=== PATIENT | male | born 1940 | race Caucasian/White ===

== ENCOUNTER 2016-07-22 02:00 | Emergency (ER) | payer MEDICARE ==
[2016-07-22] MEDS ORDERED: CLINDAMYCIN 600MG/50ML PREMIX 600 MG in DEXTROSE 1 BAG IV ONE (02:37)
--- NOTE | 2016-07-22 02:42 | Emergency Department Record ---
History of Present Illness - General Chief complaint: Lower Extremity Pain Stated complaint: LEFT LEG INJURY Time Seen by Provider: 07/22/16 02:36 Source: Patient Mode of Arrival: Ambulatory Limitations: No limitations - History of Present Illness Initial comments: 76 yo male presents to ED with a CC of left lower extremity pain and redness for the past several days. Patient states that he injured the lower extremity on a ladder earlier in the week, and the wound has been healing. Patient noticed the area around the wound became more "purple" in coloration, and came to have the lower extremity examined. Patient denies fever or chills, but reports history of CAD and DM. MD Complaint: Extremity pain Onset/Timin -: Days(s) Location: Left History of Same: No Radiation: None Severity scale (1-10): 7 Quality: Aching Consistency: Intermittent Improves with: Movement Worsens with: Rest Associated Symptoms: Denies other symptoms - Related Data Previous Rx's Medication Instructions Recorded Clindamycin HCl [Cleocin HCl] 300 mg PO Q6H #39 capsule 07/22/16 Allergies Allergy/AdvReac Type Severity Reaction Status Date / Time No Known Drug Allergies Allergy Verified 07/22/16 02:16 Travel Screening - Travel/Exposure Within Last 30 Days Have you traveled within the last 30 days?: No - Travel/Exposure Within Last Year Have you traveled outside the [place] in the last year?: No - Additonal Travel Details Have you been exposed to anyone with a communicable illness?: No - Travel Symptoms Symptom Screening: None Review of Systems Constitutional: Denies: Chills, Fever, Malaise, Night sweats Eyes: Denies: Eye discharge, Eye pain ENT: Denies: Congestion, Ear pain, Epistaxis Respiratory: Denies: Cough, Dyspnea Cardiovascular: Denies: Chest pain, Dyspnea on exertion Endocrine: Denies: Fatigue, Heat or cold intolerance Gastrointestinal: Denies: Abdominal pain, Nausea, Vomiting Genitourinary: Denies: Incontinence, Retention Musculoskeletal: Reports: Myalgia. Denies: Arthralgia, Back pain, Gout, Joint swelling Skin: Reports: Change in color. Denies: Bruising, Change in hair/nails Neurological: Denies: Abnormal gait, Confusion, Headache, Seizure Psychiatric: Denies: Anxiety Hematological/Lymphatic: Denies: Anemia, Blood Clots Past Medical History - SOCIAL HISTORY Smoking Status: Never smoker Alcohol Use: None Drug Use: None - RESPIRATORY Hx Respiratory Disorders: No - CARDIOVASCULAR Hx Cardio Disorders: Yes Hx Cardiac Cath: Yes (stents x2) Hx Heart Attack: Yes Hx Hypertension: Yes - NEURO Hx Neuro Disorders: Yes Hx TIA: Yes - GI Hx GI Disorders: No - Hx Genitourinary Disorders: Yes Hx Kidney Stones: Yes - ENDOCRINE Hx Endocrine Disorders: Yes Hx Diabetes: Yes (DM2) - MUSCULOSKELETAL Hx Musculoskeletal Disorders: No - PSYCH Hx Psych Problems: No - HEMATOLOGY/ONCOLOGY Hx Hematology/Oncology Disorders: No Family Medical History Any Significant Family History?: Yes Hx Diabetes: Father, Brother/Sister Hx Heart Disease: Father Physical Exam - General General Appearance: Alert, Oriented x3, Cooperative, No acute distress Limitations: No limitations - Head Head exam: Atraumatic, Normocephalic, Normal inspection Head exam detail: negative: Abrasion, Contusion, Almeida's sign, General tenderness, Hematoma, Laceration - Eye Eye exam: Normal appearance. negative: Conjunctival injection, Periorbital swelling, Periorbital tenderness, Scleral icterus - ENT Ear exam: negative: Auricular hematoma, Auricular trauma Nasal Exam: negative: Active bleeding, Discharge, Dried blood, Foreign body Mouth exam: negative: Drooling, Laceration, Muffled voice, Tongue elevation - Neck Neck exam: Normal inspection. negative: Meningismus, Tenderness - Respiratory Respiratory exam: Normal lung sounds bilaterally. negative: Rales, Respiratory distress, Rhonchi, Stridor - Cardiovascular Cardiovascular Exam: Regular rate, Normal rhythm, Normal heart sounds - GI/Abdominal GI/Abdominal exam: Soft. negative: Rebound, Rigid, Tenderness - Rectal Rectal exam: Deferred - exam: Deferred - Extremities Extremities exam: Tenderness, Other (Mild TTP over the left lower leg anteriorly , healing wound with granulation tissue is present to the anterior-medial aspect , another lesion noted inferior and more anterior with a large scab present over scotty wound. There is a purple discoloration to the skin surrounding the more superior wound, no crepitation noted, area is confluent and c/w ecchymosis vs. cellulitis.). negative: Calf tenderness, Pedal edema - Back Back exam: Denies: CVA tenderness (R), CVA tenderness (L) - Neurological Neurological exam: Alert, Normal gait, Oriented X3 - Psychiatric Psychiatric exam: Normal affect, Normal mood - Skin Skin exam: Normal color. negative: Abrasion Type of lesion: negative: abrasion Course Vital Signs 07/22/16 07/22/16 02:09 02:14 Temperature 97.7 F 97.7 F Pulse Rate 74 Pulse Rate [ 69 Pulse Ox Probe] Respiratory 18 18 Rate Blood Pressure 181/82 Blood Pressure 181/82 [Left Arm] Pulse Ox 98 98 - Reevaluation(s) Reevaluation #1: 07/22/16 03:35 Labs reviewed, glucose 247, labs are otherwise grossly unremarkable for an acute process. Lower extremity: No gas formation present, nothing acute. Patient was updated on all results, reports that he can get in to see his PCP Sunday. Will discharge home on Clindamcyin with instructions to return to ED for any worsening of his symptoms. Medical Decision Making - Lab Data Result diagrams: 07/22/16 02:45 07/22/16 02:45 Disposition Disposition: Discharge Clinical Impression: Wound of lower extremity Qualifiers: Encounter type: initial encounter Laterality: left Qualified Code(s): S81.802A - Unspecified open wound, left lower leg, initial encounter Disposition: Home, Self-Care Condition: (2) Stable Instructions: Acute Wound Care (ED) Additional Instructions: Return to ED if your symptoms worsen or if you have any concerns. Clindamycin as directed. Follow-up with your family doctor Sunday for re-evaluation of your lower extremity wound. Prescriptions: Clindamycin HCl [Cleocin HCl] 300 mg PO Q6H #39 capsule Forms: Patient Portal Access Time of Disposition: :
[2016-07-22 03:02] LABS: BASO % 0.3 % (0-6); EOS % 4.3 % (0-6); GRAN % 69.5 % (47-80); HEMATOCRIT 37.2 % (42.0-52.0); HEMOGLOBIN 12.8 gm/dl (14.0-18.0); LYMPH % 13.1 % (16-45); MEAN CELL VOLUME 87.9 fl (81-97); MEAN CORPUSCULAR HGB CONC 34.4 g/dl (32-36); MEAN PLATELET VOLUME 10.2 fl (7.4-10.4); MONO % 12.8 % (0-9); PLATELET COUNT 326 K/uL (130-400); RED BLOOD COUNT 4.23 M/uL (4.40-5.70); RED CELL DISTRIBUTION WIDTH 13.8 % (11.5-14.5); WHITE BLOOD COUNT W/O DIFF 8.6 K/uL (4.2-12.2)
[2016-07-22 03:03] LABS: MEAN CORPUSCULAR HEMOGLOBIN 30.2 pg (27-33)
[2016-07-22 03:15] LABS: ALB/GLOB RATIO 1.4 (1.1-1.8); ALBUMIN 4.4 gm/dL (3.5-5.0); ALKALINE PHOSPHATASE 92 U/L (38-126); ALT/SGPT 30 U/L (21-72); ANION GAP 9.5 (7-16); AST/SGOT 18 U/L (17-59); BILIRUBIN,TOTAL 0.42 mg/dL (0.2-1.3); BLOOD UREA NITROGEN 21 mg/dL (9-20); CARBON DIOXIDE 23.5 mmol/L (22-30); CREATININE 0.8 mg/dL (0.66-1.25); EST GLOMERULAR FILTRATION RATE > 60 ml/min; GLUCOSE,RANDOM 247 mg/dL (70-110); TOTAL PROTEIN 7.6 gm/dL (6.3-8.2)
--- NOTE | 2016-07-26 08:34 | RADIOLOGY REPORT ---
EXAM: LEFT LOWER LEG HISTORY: FOLLOW-UP TRAUMA TO LEFT LOWER LEG ONE DAY AGO. PAIN IN MID LOWER LEG. TECHNIQUE: AP and lateral views of the left tibia and fibula are obtained. Comparison: None. Encounter: Initial. FINDINGS: There is normal bone mineralization. No acute fracture, dislocation , or destructive bone lesion is seen. The articular relations are grossly maintained. There is mild soft tissue swelling in the mid to distal aspect of the lower leg. No foreign body nor soft tissue emphysema. IMPRESSION: 1. NO ACUTE BONE NOR JOINT ABNORMALITY IDENTIFIED. 2. SOFT TISSUE SWELLING IN THE MID TO DISTAL ASPECT OF THE LEFT LOWER LEG. JOB NUMBER: [id number] MTDD
== END 2016-07-22 03:50 | disposition home or self-care (01) ==
LOC: ER 02:00
DX: S80.922A Unspecified superficial injury of left lower leg, initial encounter (principal); W11.XXXA Fall on and from ladder, initial encounter; I10 Essential (primary) hypertension; E11.9 Type 2 diabetes mellitus without complications; I25.2 Old myocardial infarction
CPT/HCPCS: 80053; 85025; 96365; 99284